=== PATIENT | female | born 1990 | race Two or more races ===

== ENCOUNTER 2024-04-19 19:21 | Emergency (ER) | payer MEDICAID, OTHER ==
[~2024-04-19] VITALS: Ht 160 cm; Wt 229.0 kg
[2024-04-19 19:21] VITALS: BP 111/58; PULSE 85; RESP 20; O2SAT 98
== END 2024-04-20 01:42 | disposition left against medical advice (07) ==
LOC: ER 19:21
DX: R51.9 Headache, unspecified (principal); R11.0 Nausea; Z53.21 Procedure and treatment not carried out due to patient leaving prior to being seen by health care provider